=== PATIENT | male | born 1955 | race Caucasian/White ===

== ENCOUNTER 2018-09-01 14:38 | Emergency (ER) | payer OTHER ==
--- NOTE | 2018-09-01 16:14 | RAD REPORT ---
EXAM DESCRIPTION: CT - CTHCSPWOC - 09/01/2018 3:57 pm CLINICAL HISTORY: Trauma, head and neck injury. head injury;Pain COMPARISON: No comparisons TECHNIQUE: Axial 5 mm thick images of the head were obtained. Axial 2 mm thick images of the cervical spine were obtained with sagittal and coronal reconstruction images generated and reviewed. All CT scans are performed using dose optimization technique as appropriate and may include automated exposure control or mA/KV adjustment according to patient size. FINDINGS: CT HEAD WITHOUT CONTRAST: No acute hemorrhage, hydrocephalus or extra-axial collection is identified.No areas of brain edema or midline shift. The paranasal sinuses and mastoids are clear.The calvarium is intact. CT CERVICAL SPINE WITHOUT CONTRAST: No fracture or subluxation.Prominent anterior bridging osteophytosis noted.No prevertebral soft tissu es swelling is identified. IMPRESSION: No acute intracranial or cervical spine findings.
--- NOTE | 2018-09-01 16:15 | RAD REPORT ---
EXAM DESCRIPTION: RAD - Shoulder Left 2 View - 09/01/2018 3:58 pm CLINICAL HISTORY: PAIN COMPARISON: No comparisons FINDINGS: Prominent AC joint and glenohumeral joint arthritic changes are present. No acute fracture or dislocation seen.
--- NOTE | 2018-09-01 16:16 | RAD REPORT ---
EXAM DESCRIPTION: RAD - Foot Right 3 View - 09/01/2018 3:59 pm CLINICAL HISTORY: toe injury, 3rd toe COMPARISON: No comparisons FINDINGS: No acute fracture or dislocation is seen. Prominent calcaneal spurs.
--- NOTE | 2018-09-01 16:26 | ER ---
Nurse's Notes [facility] Name: Randy Mcclendon Age: 62 yrs Sex: Male : 1955 Arrival Date: 09/01/2018 Time: 14:40 Bed 30 Private MD: Shivam Jose E Diagnosis: Superficial injury of head;Contusion of left shoulder;Contusion of right lesser toe(s) without damage to nail;Strain of muscle, fascia and tendon at neck level Presentation: 09/01 14:51 Presenting complaint: Patient states: "I fell coming out of the bathtub about 3 days aa5 ago and I landed on my left side, I did hit my head". Negative LOC. Pt c/o pain to head, left shoulder, left arm, and neck. Transition of care: patient was not received from another setting of care. Onset of symptoms was August 2018. Risk Assessment: Do you want to hurt yourself or someone else? Patient reports no desire to harm self or others. Initial Sepsis Screen: Does the patient meet any 2 criteria? No. Patient's initial sepsis screen is negative. Does the patient have a suspected source of infection? No. Patient's initial sepsis screen is negative. Care prior to arrival: None. 14:51 Method Of Arrival: Ambulatory aa5 14:51 Acuity: SOHAM 3 aa5 15:32 Mechanism of Injury: Fall from the inside the tub to outside. rv Historical: - Allergies: 14:53 No Known Allergies; aa5 - PMHx: 14:53 Diabetes - NIDDM; Hypertension; aa5 - PSHx: 14:53 achilles repair; aa5 - Immunization history:: Adult Immunizations up to date. - Social history:: Smoking status: Patient/guardian denies using tobacco. - Ebola Screening: : No symptoms or risks identified at this time. - Family history:: not pertinent. - Hospitalizations: : No recent hospitalization is reported. Screenin:31 Abuse screen: Denies threats or abuse. Denies injuries from another. Nutritional rv screening: No deficits noted. Tuberculosis screening: No symptoms or risk factors identified. Fall Risk None identified. Primary Survey: 15:31 NO uncontrolled hemorrhage observed. Breathing/Chest: Respiratory pattern: regular. rv Circulation: Cardiac rhythm: sinus rhythm. Disability Alert. Exposure/Environment: There is no evidence of uncontrolled external bleeding. A warming method has been applied: A warm blanket has been provided to the patient. Assessment: 15:30 General: Appears in no apparent distress. uncomfortable, Behavior is calm, cooperative. rv Pain: Complains of pain in head, neck, shoulder. Neuro: Level of Consciousness is awake, alert, obeys commands, Oriented to person, place, time, situation, Reports headache in left. Cardiovascular: Patient's skin is warm and dry. Respiratory: Airway is patent. GI: No signs and/or symptoms were reported involving the gastrointestinal system. : No signs and/or symptoms were reported regarding the genitourinary system. EENT: No signs and/or symptoms were reported regarding the EENT system. Derm: Wound noted Right third toenail. Musculoskeletal: Swelling present in Right third toenail. Vital Signs: 14:53 BP 117 / 77; Pulse 90; Resp 16 S; Temp 98.7(TE); Pulse Ox 96% on R/A; Weight 102.06 kg aa5 (R); Height 6 ft. 3 in. (190.50 cm) (R); Pain 9/10; 16:41 BP 125 / 68; Pulse 88; Resp 16; Temp 98.5; Pulse Ox 97% ; rv 14:53 Body Mass Index 28.12 (102.06 kg, 190.50 cm) aa5 [place] Coma Score: 15:34 Eye Response: spontaneous(4). Verbal Response: oriented(5). Motor Response: obeys rv commands(6). Total: 15. Trauma Score (Adult): 15:34 Eye Response: spontaneous(1); Verbal Response: oriented(1); Motor Response: obeys rv commands(2); Systolic BP: > 89 mm Hg(4); Respiratory Rate: 10 to 29 per min(4); [place] Score: 15; Trauma Score: 12 ED Course: 14:40 Patient arrived in ED. ag5 14:41 Shivam Jose MD is Private Physician. ag5 14:51 Arm band placed on. aa5 14:52 Triage completed. aa5 15:03 Jayy Dai RN is Primary Nurse. rv 15:15 Kayode Liu MD is Attending Physician. rn 15:34 Patient maintains SpO2 saturation greater than 95% on room air. Thermoregulation: warm rv blanket given to patient. 15:35 Patient has correct armband on for positive identification. Bed in low position. Call rv light in reach. Side rails up X 1. Pulse ox on. NIBP on. 15:57 CT Head C Spine In Process Unspecified. EDMS 15:58 XRAY Shoulder LEFT 2 view In Process Unspecified. EDMS 15:59 XRAY Foot RIGHT 3 View In Process Unspecified. EDMS 16:42 No provider procedures requiring assistance completed. Patient did not have IV access rv during this emergency room visit. Administered Medications: No medications were administered Outcome: 16:25 Discharge ordered by . rn 16:43 Discharged to home ambulatory. rv 16:43 Condition: good 16:43 Discharge instructions given to patient, Instructed on discharge instructions, follow up and referral plans. medication usage, Demonstrated understanding of instructions, follow-up care, medications, Prescriptions given X 2. 16:43 Patient left the ED. rv Signatures: Dispatcher [employer] EDMS Kayode Liu MD MD rn Calderon, Audri, RN RN aa5 Jayy Dai RN RN Stoney Moreno ag5
--- NOTE | 2018-09-01 16:26 | EDPHYS ---
Physician Documentation [facility] Name: Randy Mcclendon Age: 62 yrs Sex: Male : 1955 Arrival Date: 09/01/2018 Time: 14:40 Bed 30 Private MD: Shivam Jose E ED Physician Kayode Liu HPI: 09/01 15:34 This 62 yrs old Male presents to ER via Ambulatory with complaints of Fall rn Injury, Head Injury-Adult, Arm Pain. 15:34 Details of fall: The patient fell from an upright position, while standing. Onset: The rn symptoms/episode began/occurred 2 day(s) ago. Associated injuries: The patient sustained injury to the head, neck injury, left shoulder, right 3rd toe. 15:35 Severity of symptoms: At their worst the symptoms were mild, in the emergency rn department the symptoms are unchanged. The patient has not experienced similar symptoms in the past. The patient has not recently seen a physician. Reports slipped in bathtub, landed on left shoulder on tile floor, hit head but no LOC/vomiting/seizure, remembers all events. Reports drove here and significant other urged him to be seen. Reports mild headache, + neck pain on left side, + left shoulder pain with ROM, and right 3rd toe with swelling and pain. Not on blood thinners. . Historical: - Allergies: 14:53 No Known Allergies; aa5 - PMHx: 14:53 Diabetes - NIDDM; Hypertension; aa5 - PSHx: 14:53 achilles repair; aa5 - Immunization history:: Adult Immunizations up to date. - Social history:: Smoking status: Patient/guardian denies using tobacco. - Ebola Screening: : No symptoms or risks identified at this time. - Family history:: not pertinent. - Hospitalizations: : No recent hospitalization is reported. ROS: 15:35 Constitutional: Negative for fever, chills, and weight loss, Eyes: Negative for injury, rn pain, redness, and discharge, ENT: Negative for injury, pain, and discharge, Neck: + left neck pain and injury Cardiovascular: Negative for chest pain, palpitations, and edema, Respiratory: Negative for shortness of breath, cough, wheezing, and pleuritic chest pain, Abdomen/GI: Negative for abdominal pain, nausea, vomiting, diarrhea, and constipation, Back: Negative for injury and pain, : Negative for injury, bleeding, discharge, and swelling, MS/Extremity: + left shoulder injury and pain Neuro: + headache, negative for focal neurological complaint Exam: 15:35 Constitutional: This is a well developed, well nourished patient who is awake, alert, rn and in no acute distress. Ambulatory to room without difficulty or assistance. Head/Face: Normocephalic, small left occipito-parietal hematoma. Eyes: Pupils equal round and reactive to light, extra-ocular motions intact. Lids and lashes normal. Conjunctiva and sclera are non-icteric and not injected. Cornea within normal limits. Periorbital areas with no swelling, redness, or edema. ENT: no oral trauma Neck: NO midline tenderness, no masses or swelling. Chest/axilla: NO rib tenderness MS/ Extremity: Pulses equal, no cyanosis. + painful ROM left shoulder without gross deformity, full passive ROM with minimal pain. + ecchymosis and mild pain to right 3rd toe. Neuro: Awake and alert, GCS 15, oriented to person, place, time, and situation. Cranial nerves II-XII grossly intact. Motor strength 5/5 in all extremities. Sensory grossly intact. Cerebellar exam normal. Normal gait. Vital Signs: 14:53 BP 117 / 77; Pulse 90; Resp 16 S; Temp 98.7(TE); Pulse Ox 96% on R/A; Weight 102.06 kg aa5 (R); Height 6 ft. 3 in. (190.50 cm) (R); Pain 9/10; 16:41 BP 125 / 68; Pulse 88; Resp 16; Temp 98.5; Pulse Ox 97% ; rv 14:53 Body Mass Index 28.12 (102.06 kg, 190.50 cm) aa5 Juliet Coma Score: 15:34 Eye Response: spontaneous(4). Verbal Response: oriented(5). Motor Response: obeys rv commands(6). Total: 15. Trauma Score (Adult): 15:34 Eye Response: spontaneous(1); Verbal Response: oriented(1); Motor Response: obeys rv commands(2); Systolic BP: > 89 mm Hg(4); Respiratory Rate: 10 to 29 per min(4); [place] Score: 15; Trauma Score: 12 MDM: 15:15 Patient medically screened. rn 16:24 Differential diagnosis: closed head injury, contusion, fracture, sprain, strain. Data rn reviewed: vital signs, nurses notes, radiologic studies, CT scan, plain films, and as a result, I will discharge patient. Counseling: I had a detailed discussion with the patient and/or guardian regarding: the historical points, exam findings, and any diagnostic results supporting the discharge/admit diagnosis, radiology results, the need for outpatient follow up, to return to the emergency department if symptoms worsen or persist or if there are any questions or concerns that arise at home. Special discussion: Based on the patient's history, exam and DX evaluation, there is no indication for emergent intervention or inpatient TX. It is understood by the patient/guardian that if the SXs persist or worsen they need to return immediately for re-evaluation. I discussed with the patient/guardian in detail that at this point there is no indication for admission to the hospital. It is understood, however, that if the symptoms persist or worsen the patient needs to return immediately for re-evaluation. ED course: NO acute fractures or injury on CT head/cspine, negative plain films. Will dc home with pain meds and muscle relaxer. . 09/01 15:27 Order name: CT Head C Spine; Complete Time: 16:18 rn 09/01 15:27 Order name: XRAY Shoulder LEFT 2 view; Complete Time: 16:18 rn 09/01 15:27 Order name: XRAY Foot RIGHT 3 View; Complete Time: 16:18 rn Administered Medications: No medications were administered Disposition: 09/01/18 16:25 Discharged to Home. Impression: Superficial injury of head, Contusion of left shoulder, Contusion of right lesser toe(s) without damage to nail, Strain of muscle, fascia and tendon at neck level. - Condition is Stable. - Discharge Instructions: Contusion, Head Injury, Adult, Shoulder Pain, Cervical Sprain, [id number]. - Prescriptions for Tylenol- Codeine #3 300-30 mg Oral Tablet - take 1 tablet by ORAL route every 6 hours As needed; 20 tablet. Cyclobenzaprine 10 mg Oral Tablet - take 1 tablet by ORAL route every 8 hours As needed; 20 tablet. - Medication Reconciliation Form, Thank You Letter, Antibiotic Education, Prescription Opioid Use form. - Follow up: Private Physician; When: As needed; Reason: Recheck today's complaints, Re-evaluation by your physician. - Problem is new. - Symptoms have improved. Signatures: Dispatcher [employer] EDKayode Botello MD MD rn Calderon, Audri, RN RN aa5 Jayy Dai RN RN rv Corrections: (The following items were deleted from the chart) 16:43 16:25 09/01/2018 16:25 Discharged to Home. Impression: Superficial injury of head; rv Contusion of left shoulder; Contusion of right lesser toe(s) without damage to nail; Strain of muscle, fascia and tendon at neck level. Condition is Stable. Forms are Medication Reconciliation Form, Thank You Letter, Antibiotic Education, Prescription Opioid Use. Follow up: Private Physician; When: As needed; Reason: Recheck today's complaints, Re-evaluation by your physician. Problem is new. Symptoms have improved. rn
== END 2018-09-01 16:43 | disposition home or self-care (01) ==
LOC: ER 14:38
DX: S00.90XA Unspecified superficial injury of unspecified part of head, initial encounter (principal); S16.1XXA Strain of muscle, fascia and tendon at neck level, initial encounter; S40.012A Contusion of left shoulder, initial encounter; S90.121A Contusion of right lesser toe(s) without damage to nail, initial encounter; W18.2XXA Fall in (into) shower or empty bathtub, initial encounter; Y93.89 Activity, other specified; Y92.9 Unspecified place or not applicable; I10 Essential (primary) hypertension
CPT/HCPCS: 70450; 72125; 99284

== ENCOUNTER 2018-10-29 05:56 | Day surgery (SDC) | payer OTHER ==
--- NOTE | 2018-10-25 09:54 | RAD REPORT ---
EXAM DESCRIPTION: RAD - Chest Pa And Lat (2 Views) - 10/25/2018 9:45 am CLINICAL HISTORY: preop Chest pain. COMPARISON: No comparisons FINDINGS: The lungs are clear. The heart is normal in size. No displaced fractures. IMPRESSION: No acute or concerning finding suspected.
[2018-10-25 10:30] LABS: Absolute Lymphocytes (CBC) 1.2 K/uL (0.7-4.9); Basophils % 0.6 % (0-1.3); Hematocrit 43.1 % (39.6-49.0); Lymphocytes % 22.4 % (15.3-44.8); MPV 8.1 fL (7.6-11.3); RBC Red Blood Cell Count 4.71 M/uL (4.33-5.43)
[2018-10-25 10:40] LABS: Protime INR 1.03
[2018-10-25 10:47] LABS: Potassium 3.9 mmol/L (3.5-5.1)
--- NOTE | 2018-10-25 12:42 | EKG ---
Test Date: 2018-10-25 Test Time: 09:35:30 Material Handler 2Nd Shift: STU MEASUREMENT RESULTS: Intervals: Rate: 66 WA: 194 QRSD: 94 QT: 398 QTc: 417 [place]: P: 32 WA: 194 QRS: 39 T: 61 INTERPRETIVE STATEMENTS: Normal sinus rhythm Normal ECG No previous ECG available for comparison Electronically Signed On 10-25-18 12:40:40 CDT by Edgardo Prather
[2018-10-29] MEDS ORDERED: CEFAZOLIN/SWI 2gm 2 GM/20 ML SYR ONE (06:01)
[2018-10-29] MEDS ORDERED: NA CHLORIDE 0.9% 1,000 ML ONE ×2 (06:01→06:49)
[2018-10-29] MEDS ORDERED: MIDAZOLAM HCL 2 MG/2 ML INJ ONE (06:32)
[2018-10-29] MEDS ORDERED: PROPOFOL 200 MG/20 ML VIAL IV ONE (06:32)
[2018-10-29] MEDS ORDERED: FENTANYL CITR 100 MCG/2 ML ONE (06:32)
[2018-10-29] MEDS ORDERED: ROCURONIUM 50 MG/5 ML VIAL IV ONE (06:33)
[2018-10-29] MEDS ORDERED: LIDOCAINE 2% MPF 5 ML VIAL ONE (06:33)
[2018-10-29] MEDS ORDERED: dexAMETHasone 10 MG/ML VIAL ONE (06:37)
[2018-10-29] MEDS ORDERED: ROPIVACAINE HCL 20 ML ONE (06:37)
[2018-10-29] MEDS ORDERED: ROPLVACAINE HCL 20 ML ONE (06:37)
[2018-10-29] MEDS ORDERED: EPINEPHRINE/PF 1 MG/ML AMP ONE (06:49)
[2018-10-29] MEDS ORDERED: NS 0.9% VIAL 10 ML ONE (07:54)
[2018-10-29] MEDS ORDERED: Phenylephrine HCl 10 MG/ML 1 ML VIAL ONE (07:54)
[2018-10-29] MEDS ORDERED: ONDANSETRON 4 MG/2 ML VIAL ONE (07:56)
[2018-10-29] MEDS ORDERED: EPHEDRINE SULF 50 MG/ML VIAL ONE (08:07)
[2018-10-29] MEDS ORDERED: GLYCOPYRROLATE 0.2 MG/ML SYR ONE (09:36)
[2018-10-29] MEDS ORDERED: KETOROLAC 30 MG/ML INJ ONE (09:36)
[2018-10-29] MEDS ORDERED: NEOSTIGMINE 1 MG/ML -10 ML VIAL ONE (09:46)
--- NOTE | 2018-10-29 10:09 | P.BOP ---
Preoperative diagnosis: left shoulder rotator cuff tear, impingement syndrome Postoperative diagnosis: same, left shoulder SLAP tear Primary procedure: left shoulder arthroscopic rotator cuff repair Secondary procedure: left shoulder arthroscopic SLAP debridement Other procedure(s): left shoulder arthroscopic subacromial decompression Transmission Design Engineer: NONE,NONE Estimated blood loss: 10 cc Specimen: none Findings: see dictation Anesthesia: General Complications: None Implants: 5.5 mm Arthrex corkscrew, 2- 4.75 mm Arthrex Swivelocks Fluids & blood products: per anesthesia record Transferred to: Recovery Room Condition: Good
--- NOTE | 2018-10-29 11:10 | RAD REPORT ---
EXAM DESCRIPTION: RAD - Shoulder 1 View - 10/29/2018 11:04 am CLINICAL HISTORY: POST-OP Rotator cuff repair COMPARISON: No comparisons FINDINGS: Single frontal projection is submitted. Prominent inferiorly projecting AC joint osteophyt es noted. No acute fracture or subluxation seen.
[2018-10-29] MEDS ORDERED: HYDROCODONE/APAP 7.5/325 MG TAB ONE (11:29)
--- NOTE | 2018-10-30 04:51 | OP ---
Date of Procedure: 10/29/2018 Surgeon: Jude Poon MD Preoperative Diagnoses: 1.Left shoulder rotator cuff tear. 2.Left shoulder impingement syndrome. Postoperative Diagnoses: 1.Left shoulder rotator cuff tear. 2.Left shoulder impingement syndrome. 3.Left shoulder SLAP tear. Procedures Performed: 1.Left shoulder arthroscopic rotator cuff repair. 2.Left shoulder arthroscopic SLAP tear debridement. 3.Left shoulder arthroscopic subacromial decompression. Anesthesia: General endotracheal. Fluids: Per Anesthesia record. Estimated Blood Loss: . Implants: 1.One 5.5 mm Arthrex Corkscrew. 2.Two 4.75 mm Arthrex SwiveLocks. Complications: None. Indication For Procedure: Randy is a 62-year-old male, who presented to my clinic after a fall with pain in his left shoulder and physical exam findings and MRI findings were consistent with left shoul lori rotator cuff tear as well as impingement syndrome. I discussed with the patient at length risks and benefits associated with operative and nonoperative treatment. He expressed understanding and el ected to proceed with operative treatment. Description Of Procedure: After informed consent was obtained, the patient was identified in the pre operative holding area and the left upper extremity was marked. Patient was then brought back to the PACU and underwent interscalene block of his left upper extremity performed by Anesthesia. He was t hen transferred to the operating room, transferred to the operating table in supine fashion, and plac ed under general endotracheal anesthesia. He was placed in the beach chair position with the extremi ties well padded. The left upper extremity was then examined. The patient had full range of motion of his left shoulder and no instability was noted. The left upper extremity was then prepped and krystian ped in usual sterile fashion. A time-out was initiated. Correct patient and procedure were confirme d and identified. The patient had received his preoperative prophylactic antibiotics. A spinal need le was then introduced into the glenohumeral joint via the posterior portal position. The shoulder j oint was injected with 30 cc of normal saline. A stab incision was made and arthroscope was brought in via the posterior portal position. A standard anterior portal was then created under direct visua lization and a diagnostic arthroscopy was performed. Patient was noted to have a type 1 SLAP tear. The superior labrum was found to be stable to probe. The SLAP tear debridement was then performed us ing the arthroscopic shaver. Anterior and posterior ho were found to be stable to probe. Humeral head and glenoid were without any significant chondromalacia noted. The inferior labrum was found t o be intact and stable to probe. There were no loose bodies found within the axillary pouch. Subsca pularis was found to be stable and intact without tear. The arthroscope was then brought in and then supraspinatus was noted to have a full-thickness tear. Lateral portal was created by first placing a spinal needle and then a stab incision was made and the obturator was brought in from outside of th e shoulder joint and it was brought into the shoulder joint confirming full-thickness supraspinatus t ear. Arthroscopic shaver was then brought in and the rotator cuff tear was debrided using the arthro scopic shaver. The greater tuberosity was then debrided of any devitalized tissue. A bleeding bony bed was created using arthroscopic shaver. The arthroscope was then brought into the subacromial spa ce and a subacromial bursectomy was performed. The undersurface of the acromion was then debrided us ing a radiofrequency ablator. The rotator cuff tear was then again identified and debrided. A stab incision was made just lateral to the acromion and a 5.5 mm Corkscrew was placed through the stab inc ision and it was double loaded. Sutures were then passed through the rotator cuff tear in an anterio r to posterior direction in a horizontal mattress fashion and the sutures were tied. There was good overall reduction of the rotator cuff tear onto the greater tuberosity. In a crisscross fashion, a d ouble row figuration was completed and 2 lateral row anchors were placed using 4.75 mm SwiveLocks. T here was good overall reduction of the rotator cuff on the greater tuberosity. Remaining sutures wer e then cut. One of the sutures from the SwiveLock anteriorly was placed another reinforce ment repair anteriorly and there was good overall reduction of the rotator cuff tear. Next, attentio n was taken to subacromial decompression and an arthroscopic elba was brought into the lateral portal . An acromioplasty was performed spurs coming off the undersurface of the acromion. Acro mioplasty was completed range of motion of the shoulder. Arthroscopic instruments were re moved without complication. Wounds were then irrigated thoroughly with normal saline. Subcutaneous tissue was approximated using a 2-0 Vicryl. Skin was approximated using a 3-0 Monocryl. Sterile jude ssings were applied. Patient was placed in a shoulder immobilizer, awakened, and transferred to PACU in stable condition. Postoperative Plan: He will be nonweightbearing. He will follow the medium rotator cuff repair prot ocol beginning at 3 weeks postoperatively. He will follow up in my clinic next week for wound check. SHEYLA/MODL Voice ID: [id number] Report ID: [id number]
== END 2018-10-29 12:00 | disposition home or self-care (01) ==
LOC: OR 05:56
PROVIDERS: ATTEND Orthopaedic Surgery Sports Medicine
PROC: 0RNK4ZZ Release Left Shoulder Joint, Percutaneous Endoscopic Approach (ICD-10-PCS; 2018-10-29)
PROC: 0RBK4ZZ Excision of Left Shoulder Joint, Percutaneous Endoscopic Approach (ICD-10-PCS; 2018-10-29)
PROC: 0LQ24ZZ Repair Left Shoulder Tendon, Percutaneous Endoscopic Approach (ICD-10-PCS; principal; 2018-10-29 07:30)
DX: S46.012A Strain of muscle(s) and tendon(s) of the rotator cuff of left shoulder, initial encounter (principal); S43.432A Superior glenoid labrum lesion of left shoulder, initial encounter; M75.42 Impingement syndrome of left shoulder; M75.22 Bicipital tendinitis, left shoulder; M19.012 Primary osteoarthritis, left shoulder; I10 Essential (primary) hypertension; E11.9 Type 2 diabetes mellitus without complications; G47.33 Obstructive sleep apnea (adult) (pediatric)
CPT/HCPCS: 93005; 85025; 80048; 36415; 85610; 82962 ×2; 85730; 71046; 73020; 29827; 29826; 29822; J2704; J2710; J0171; J2370; J2250; J3010; J1100; J2795; J0690; J7030 ×2; J2405